=== PATIENT | male | born 1980 | race Caucasian/White ===

== ENCOUNTER 2018-03-20 02:44 | Emergency (ER) | payer OTHER ==
[~2018-03-20] VITALS: Ht 195.6 cm; Wt 93.0 kg
[2018-03-20] MEDS ORDERED: DOXYCYCLINE HY100 MG PO (03:17)
== END 2018-03-20 03:28 | disposition home or self-care (01) ==
LOC: ED 02:44
DX: S71.111A Laceration without foreign body, right thigh, initial encounter (principal); W26.9XXA Contact with unspecified sharp object(s), initial encounter; F17.200 Nicotine dependence, unspecified, uncomplicated
CPT/HCPCS: 90471; 90715; 99282